=== PATIENT | female | born 1970 | race African-American/Black ===

== ENCOUNTER 2022-05-18 11:11 | Emergency (ER) | payer MEDICAID ==
[~2022-05-18] VITALS: Ht 162.6 cm; Wt 75.0 kg
[~2022-05-18 11:11] MED LIST: AMOX1TAB16 MT; BO1 TP
[2022-05-18 11:50] VITALS: BP 159/91
== END 2022-05-18 12:52 | disposition home or self-care (01) ==
LOC: ER 11:11
DX: S01.112D Laceration without foreign body of left eyelid and periocular area, subsequent encounter (principal); Z48.02 Encounter for removal of sutures; F12.10 Cannabis abuse, uncomplicated; X58.XXXD Exposure to other specified factors, subsequent encounter
CPT/HCPCS: 99281

== ENCOUNTER 2024-08-13 16:25 | Emergency (ER) | payer MEDICAID ==
[~2024-08-13] VITALS: Ht 157.5 cm; Wt 72.0 kg
[2024-08-13 16:46] VITALS: O2SAT 100
[2024-08-13] MEDS: LIDOCAINE 5% PATCH TOP STA (20:47)
[2024-08-13] MEDS: KETOROLAC 15MG/ML VIAL IM ONE (20:48)
[2024-08-13 21:02] VITALS: BP 189/90; PULSE 56; RESP 18; TEMP 36.83628; O2SAT 98
== END 2024-08-13 21:05 | disposition home or self-care (01) ==
LOC: ER 16:25
DX: S83.412A Sprain of medial collateral ligament of left knee, initial encounter (principal); F12.10 Cannabis abuse, uncomplicated; X58.XXXA Exposure to other specified factors, initial encounter; Y93.89 Activity, other specified; Y92.89 Other specified places as the place of occurrence of the external cause; Y99.8 Other external cause status
CPT/HCPCS: 99283; 73562; 96372; J1885